=== PATIENT | male | born 1985 ===

== ENCOUNTER 2020-02-12 20:52 | Emergency (ER) | payer OTHER, SELFPAY ==
[2020-02-13 12:20] LABS: SARS-CoV-2 MS2 Positive; SARS-CoV-2 N Gene Negative; SARS-CoV-2 S Gene Negative; SARS-CoV-2 orf1ab Negative
== END 2020-02-12 21:31 | disposition home or self-care (01) ==
LOC: ERS 20:52
DX: Z20.828 Contact with and (suspected) exposure to other viral communicable diseases (principal)
CPT/HCPCS: 87635; 99283; U0003